=== PATIENT | female | born 1995 | race Caucasian/White ===

== ENCOUNTER 2021-12-21 19:31 | Observation (INO) ==
[2021-12-21] MEDS ORDERED: Ondansetron 4 MG/2 ML VIAL IVP ONE (20:19)
[2021-12-21] MEDS ORDERED: Ketorolac 30 MG/ML VIAL IVP ONE (20:19)
[2021-12-21 20:38] LABS: Basophils # 0.1 K/mcL (0.0-0.2); Basophils % 0.6 %; Eosinophils # 0.4 K/mcL (0.0-0.6); Eosinophils % 4.2 %; Hematocrit 38.9 % (35.3-44.9); Hemoglobin 12.8 g/dL (11.5-15.4); Immature Granulocytes % 0.2 % (0-4); Lymphocytes # 2.6 K/mcL (0.6-4.6); Lymphocytes % 31.4 %; Mean Corpuscular HGB Conc 32.9 g/dL (31.6-35.5); Mean Corpuscular Hemoglobin 31.8 pg (28.0-33.3); Mean Corpuscular Volume 96.5 fL (83.0-100.0); Mean Platelet Volume 11.9 fL (9.4-12.4); Monocytes # 0.6 K/mcL (0.0-1.3); Monocytes % 7.3 %; Neutrophils # 4.7 K/mcL (1.6-8.9); Platelet Count 206 K/mcL (140-400); Red Blood Count 4.03 M/mcL (3.82-4.97); Red Cell Distribution Width 12.3 % (11.5-14.5); Segmented Neutrophils % 56.3 %; White Blood Count 8.4 K/mcL (4.3-11.1)
[2021-12-21 20:58] LABS: Bilirubin,Urine Negative (Negative); Blood,Urine Negative (Negative); Clarity,Urine Clear (Clear); Color,Urine Colorless (Yellow); Glucose,Urine (UA) Normal (Normal); Ketones,Urine Negative (Negative); Leukocyte Esterase,Urine Negative (Negative); Nitrite,Urine Negative (Negative); PH,Urine 6.5 pH Units (5.0-8.0); Protein,Urine Negative (Neg-Trace); Specific Gravity,Urine 1.009 (1.010-1.025); Urobilinogen,Urine Normal (Normal)
[2021-12-21 21:07] LABS: Alanine Aminotransferase 65 Units/L (7-52); Albumin 4.1 g/dL (3.5-5.7); Albumin/Globulin Ratio 1.6 (1.1-2.2); Alkaline Phosphatase 99 Units/L (34-104); Aspartate Amino Transferase 43 Units/L (13-39); BUN/Creatinine Ratio 10 (6-26); Bilirubin,Indirect 0.2 mg/dL (0.0-1.0); Bilirubin,Total 0.2 mg/dL (0.3-1.0); Blood Urea Nitrogen 8 mg/dL (6-20); Carbon Dioxide 27 mEq/L (23-29); Chloride 106 mEq/L (98-107); Globulin 2.6 g/dL (2.4-3.5); Glucose 100 mg/dL (70-105); Lipase 40 Units/L (11-82); Osmolality,Calculated 284 (280-300); Sodium 138 mEq/L (136-145); Total Protein 6.7 g/dL (6.4-8.9); Troponin I < 0.03 ng/mL (< 0.04)
[2021-12-21] MEDS ORDERED: Morphine Sulfate 2 MG/ML SYRINGE SQ PRN (22:36)
[2021-12-21] MEDS: 0.9 % Sodium Chloride 1,000 ML IVC SCH (23:02)
[2021-12-22] MEDS: MetroNIDAZOLE 500 MG/100 ML 500 MG/100 ML BAG IVPB SCH ×2 (08:52→16:00)
[2021-12-22] MEDS: Acetaminophen IV 1,000 MG/100 ML BAG IVPB SCH ×2 (08:55→13:48)
[2021-12-22] MEDS: 0.9 % Sodium Chloride 1,000 ML IVC SCH (09:05)
[2021-12-22] MEDS ORDERED: *HR* Midazolam HCl 2 MG/2 ML VIAL ONE (16:58)
[2021-12-22] MEDS ORDERED: *HR* FentaNYL (PF) 100 MCG/2 ML VIAL ONE (16:58)
[2021-12-22] MEDS ORDERED: *HR* Propofol 200 MG/20 ML VIAL IVP ONE (16:58)
[2021-12-22] MEDS ORDERED: Lidocaine -MPF 2% 2 ML VIAL ONE (17:01)
[2021-12-22] MEDS ORDERED: *HR* Rocuronium Bromide 50 MG/5 ML VIAL ONE ×2 (17:01→20:07)
[2021-12-22] MEDS ORDERED: *HR* Succinylcholine 200 MG/10 ML VIAL IVP ONE (17:01)
[2021-12-22] MEDS ORDERED: Ondansetron 4 MG/2 ML VIAL ONE (17:01)
[2021-12-22] MEDS ORDERED: Albuterol 2.5 MG/3 ML NEBULIZER IH PRN (17:11)
[2021-12-22] MEDS ORDERED: Promethazine 6.25 MG in Water for inj. (sterile) 20 ML IVPB PRN (17:11)
[2021-12-22] MEDS ORDERED: Ondansetron 4 MG/2 ML VIAL IVP PRN ×2 (17:11→22:48)
[2021-12-22] MEDS ORDERED: *HR* Meperidine 25 MG/ML SYRINGE IVP PRN (17:11)
[2021-12-22] MEDS ORDERED: Lidocaine HCL 4 ML Topical Solution (Laryng-O-Jet Kit Sterile Pak) TP ONE (19:06)
[2021-12-22] MEDS ORDERED: Famotidine 20 MG/2 ML VIAL ONE (19:23)
[2021-12-22] MEDS ORDERED: *HR* HYDROMORPHONE 2 MG/ML VIAL ONE (19:49)
[2021-12-22] MEDS: *HR* HYDROmorphone PF 0.5 MG/0.5 ML SYRINGE IVP PRN ×3 (20:50→21:15)
[2021-12-22] MEDS ORDERED: Ketorolac 30 MG/ML VIAL ONE (21:20)
[2021-12-22] MEDS ORDERED: Acetaminophen IV 1,000 MG/100 ML BAG IVPB ONE ×2 (21:20→21:25)
[2021-12-22] MEDS ORDERED: Ketorolac 30 MG/ML VIAL IVP ONE (21:22)
[2021-12-22] MEDS ORDERED: 0.9 % Sodium Chloride 1,000 ML IVC SCH (22:48)
[2021-12-23] MEDS: *HR* Acetaminophen w/Cod 300-30 mg 1 TAB TABLET PO PRN ×2 (00:29→07:55)
[2021-12-23 11:40] VITALS: BP 100/57; PULSE 64; TEMP 97.6; O2SAT 99
== END 2021-12-23 13:37 | disposition home or self-care (01) ==
LOC: EMEROOARM 19:31 → 3ANU 19:31
PROVIDERS: ADMIT Surgery; ATTEND Surgery